=== PATIENT | male | born 2000 | race Caucasian/White ===

== ENCOUNTER 2021-08-20 19:54 | Inpatient (IN) | payer SELFPAY ==
[~2021-08-20] VITALS: Ht 177.8 cm; Wt 78.1 kg
[2021-08-20 20:52] LABS: HEMATOCRIT 42.5 % (36.0-47.0); HEMOGLOBIN 14.2 g/dl (12.5-16.1); MEAN CELL VOLUME 92 fl (80.0-95.0); MEAN CORPUSCULAR HEMOGLOBIN 31 pg (26-32); MEAN CORPUSCULAR HGB CONC 33 g/dl (33.0-37.0); MEAN PLATELET VOLUME 9.6 fl (7.4-10.4); PLATELET COUNT 308 K/mm3 (130-400); RED BLOOD COUNT 4.61 M/mm3 (4.20-5.60); REDCELL DISTRIBUTION WIDTH-CV 13.3 % (11.5-14.5)
[2021-08-20 21:08] LABS: BILIRUBIN,TOTAL 1.3 mg/dL (0.2-1.2); CALCIUM 9.3 mg/dL (8.4-10.2); CREATININE, serum 0.97 mg/dL (0.72-1.25); POTASSIUM 3.5 mmol/L (3.5-4.5); TOTAL PROTEIN 8.2 gm/dL (6.2-8.1)
[2021-08-20 21:32] LABS: BAND 16 % (0-10); LYMPHOCYTE 5 % (20.0-51.0); NEUTROPHILS 73 % (42.0-75.2); PLATELET ESTIMATE NORMAL (NORMAL)
[2021-08-21] VITALS (13 sets, daily range): BP systolic 106–120; BP diastolic 44–66; PULSE 80–112; TEMP 99–101.4
--- NOTE | 2021-08-21 00:39 | NUR ---
PATIENT ARRIVED TO ROOM 350 AT 0030 FROM THE ER. PATIENT IS ALERT AND ORIENTED X'S 4, DENIES PAIN OR NAUSEA AT THIS TIME. PATIENT ORIENTED TO ROOM. CALL LIGHT WITHIN REACH.
--- NOTE | 2021-08-21 06:41 | NUR ---
Patient rested quietly in bed throughout the night. No new issues noted or reported by patient.
--- NOTE | 2021-08-21 14:43 | NUR ---
Tape Maker met with patient and his mother, Neema (ph#[phone]) to discuss discharge planning. Patient is a student at [employer] and lives in the dorms during the school year. Patient reports he is from [place]. Patient does not have a regular primary care physician, but utilizes [facility] as needed. Patient does not use any DME and is independent with ADLS. Patient is not and has no children. Patient's legal next of kin is his mother, Neema. Patient plans to return home upon discharge. SHANELL contacted the [employer] office of student life to notify them of patient's admission. Patient's mother had questions about billing so SW consulted [employer] Counselor. Discharge Plan: Home
--- NOTE | 2021-08-21 21:30 | NUR ---
Pt. sitting up in bed at this time. Pt. is A&OX3, assessment complete. INT to rt. ac patent. Abd. incisisons x3 well approximated. Pt. denies pain or other needs, call light within reach.
[2021-08-22 00:19] VITALS: BP 100/50; PULSE 94; TEMP 99.4
[2021-08-22 04:46] VITALS: BP 105/60; PULSE 82; TEMP 98.3
[2021-08-22 07:34] LABS: MEAN CELL VOLUME 94 fl (80.0-95.0); MEAN CORPUSCULAR HGB CONC 33 g/dl (33.0-37.0); MEAN PLATELET VOLUME 10.9 fl (7.4-10.4); PLATELET COUNT 254 K/mm3 (130-400); RED BLOOD COUNT 3.72 M/mm3 (4.20-5.60); REDCELL DISTRIBUTION WIDTH-CV 13.6 % (11.5-14.5)
[2021-08-22 07:37] LABS: HEMATOCRIT 34.9 % (36.0-47.0); HEMOGLOBIN 11.5 g/dl (12.5-16.1); MEAN CORPUSCULAR HEMOGLOBIN 31 pg (26-32)
[2021-08-22 07:54] LABS: CALCIUM 8.5 mg/dL (8.4-10.2); CREATININE, serum 0.65 mg/dL (0.72-1.25); POTASSIUM 3.6 mmol/L (3.5-4.5)
[2021-08-22 08:00] VITALS: BP 103/57; PULSE 90; TEMP 98.2
[2021-08-22 12:00] VITALS: BP 113/58; PULSE 95; TEMP 98.1
[2021-08-22 15:21] VITALS: BP 117/48; PULSE 95; TEMP 99.4
--- NOTE | 2021-08-22 19:45 | NUR ---
Pt. sitting up in bed with mother at bedside. Pt. is A&OX3, assessment complete. INT to rt. forearm patent. Abd. incisions, x3 well approximated. Pt. denies pain or other needs.
[2021-08-22 20:10] VITALS: BP 103/52; PULSE 88; TEMP 98.2
[2021-08-23 00:15] VITALS: BP 107/53; PULSE 88; TEMP 99.8
[2021-08-23 04:03] VITALS: BP 100/52; PULSE 92; TEMP 98.8
[2021-08-23 06:44] LABS: BASO % 0.3 % (0.0-2.0); EOS # 0.1 K/mm3 (0.0-0.7); EOS % 1.2 % (0.0-4.0); GRAN # 7.5 K/mm3 (1.4-6.5); GRAN % 69.4 % (42.2-75.2); LYMPH # 2.3 K/mm3 (1.2-3.4); MEAN CELL VOLUME 93 fl (80.0-95.0); MEAN CORPUSCULAR HEMOGLOBIN 31 pg (26-32); MEAN CORPUSCULAR HGB CONC 33 g/dl (33.0-37.0); MEAN PLATELET VOLUME 10.2 fl (7.4-10.4); MONO # 0.8 K/mm3 (0.1-0.6); MONO % 7.5 % (1.7-9.3); PLATELET COUNT 322 K/mm3 (130-400); REDCELL DISTRIBUTION WIDTH-CV 13.3 % (11.5-14.5)
[2021-08-23 06:55] LABS: HEMATOCRIT 33.4 % (36.0-47.0)
[2021-08-23 08:04] VITALS: BP 110/62; PULSE 90; TEMP 98.9
[2021-08-23] MEDS ORDERED: NORCO 325 MG-51 TAB PO (08:49)
[2021-08-23] MEDS ORDERED: AMOXICILLIN 8751 TAB PO (08:49)
--- NOTE | 2021-08-23 14:31 | NUR ---
PT MET CRITERIA FOR DISCHARGE, VSS. PAIN CONTROLLED. LAP SITES ARE WELL APPROXIMATED. IV REMOVED WITHOUT COMPLICATIONS, CATHETER INTACT. DISCHARGE INSTRUCTIONS REVIEWED, PT VERBALIZED UNDERSTANDING. PT AWARE OF F/U APPT TO MAKE AND OF PRESCRIPTIONS TO PRODUCTION POSTING CLERK. PT DC TO HOME VIA WHEELCHAIR ACCOMPANIED BY TELEGRAPH EDITOR.
== END 2021-08-23 14:33 | disposition home or self-care (01) | DRG 340 ==
LOC: COL.ER 19:54 → SURG 22:49
PROVIDERS: Physician Assistant; Surgery; ADMIT Surgery
PROC: 0DTJ4ZZ Resection of Appendix, Percutaneous Endoscopic Approach (ICD-10-PCS; principal; 2021-08-21 09:30)
DX: K35.33 Acute appendicitis with perforation, localized peritonitis, and gangrene, with abscess (principal); Z20.822 Contact with and (suspected) exposure to COVID-19
CPT/HCPCS: A9284; J1100; J1885; J2250; J2270; J2405; J2543; J2704; J3010; J7030; Q9967